=== PATIENT | female | born 1955 | race Hispanic/Latino ===

== ENCOUNTER 2017-02-11 13:28 | Outpatient (CLI) | payer OTHER ==
--- NOTE | 2017-02-11 23:13 | MRI ---
MRI OF THE RIGHT HAND WITHOUT CONTRAST 02/11/17 INDICATION: History of carpal tunnel syndrome with right hand pain since the surgery. Concern for tenosynovitis. COMPARISON: None. FINDINGS: There is some susceptibility artifact near the carpal tunnel release site consistent with the patien t's history of recent surgery. This is seen adjacent to the palmaris longus tendon. The transverse c arpal band is completely released. There is some intermediate T1 and increased T2 signal seen within the tendon sheath of the flexor tendons of the carpal tunnel with some fluid seen within the tendon sheath over the thumb, index, long, ring and small finger which may be reactive and related to the patient's recent surgery. No definite mass is evident within the carpal tunnel. The visualized aspec ts of the median nerve best seen proximally appears within normal limits. The nerve at the level of the carpal release is not well seen due to motion artifact. There is some increased T2 signal involv ing the ulnar aspect of the proximal base of the lunate. There is mild first CMC osteoarthrosis. TFC is difficult to assess due to positioning and motion artifact. There is suggestion of some ECU tend inosis at the level of the distal ulna. The other extensor tendons appear within normal limits. No d efinite drainable fluid collection is grossly evident. The visualized aspects of the extrinsic and i ntrinsic ligaments of the wrist appear within normal limits. No definite muscular atrophy is grossly evident. No abnormal T2 signal is seen involving the intrinsic hand musculature to suggest denervat ion. The ulnar neurovasculature appears within normal limits. IMPRESSION: 1. Mild tenosynovitis of the flexor tendons of the hand. May be related to the patient's posto perative state. There is postsurgical change of a carpal tunnel release with susceptibility artifact seen within the region of the transverse carpal band release site. 2. Increased T2 signal consistent with subchondral cyst-like abnormalities or edema involving t he ulnar and proximal aspect of the lunate can be seen with ulnar compartment abutment syndrome. 3. Mild first CMC osteoarthrosis. 4. Mild ECU tendinosis at the level of the distal ulna. 5. Some limitation of the exam as above. POS: [facility]
== END 2017-02-11 13:29 | disposition home or self-care (01) ==
LOC: SCSMRI 13:28
PROVIDERS: ATTEND Orthopaedic Surgery Hand Surgery
DX: M79.641 Pain in right hand (principal); M65.841 Other synovitis and tenosynovitis, right hand; M18.11 Unilateral primary osteoarthritis of first carpometacarpal joint, right hand
CPT/HCPCS: 36415; 85025; 85652

== ENCOUNTER 2017-05-12 07:46 | Outpatient (CLI) | payer OTHER ==
--- NOTE | 2017-05-12 09:35 | MRI ---
CERVICAL SPINE MRI WITHOUT CONTRAST: Date: 05-12-17 Comparison: None. History: Chronic neck pain radiating down both shoulders. Technique: Multiplanar, multisequence MR imaging of the cervical spine provided without contrast. FINDINGS: The sagittal STIR imaging demonstrates no focal area of osseous marrow edema. There is straightening of the normal cervical lordosis with no anterolisthesis or retrolisthesis seen within the cervical sp ine. No prevertebral soft tissue abnormality noted. There is mild degenerative change present at the atlantoaxial interspace. C2-3: Intervertebral disc height and signal intensity is within normal limits with no significant hermann tral canal or neural foraminal stenosis. C3-4: Intervertebral disc height and signal intensity within normal limits. No significant central ca nal or neural foraminal stenosis. C4-5: Intervertebral disc height and signal intensity is within normal limits. There is mild facet hy pertrophy on the left with mild left neural foraminal stenosis. No significant central canal or right neural foraminal stenosis. C5-6: There is disc space narrowing, disc desiccation, and anterior osteophyte formation. There is mi ld disc bulge with partial effacement of the ventral thecal sac and minimal central canal stenosis. F acet and uncal vertebral osteophyte formation noted on the left with mild left neural foraminal steno sis. No significant right neural foraminal stenosis. C6-7: There is disc space narrowing, disc desiccation and mild disc bulge with no significant central canal stenosis. Mild left facet hypertrophy with no significant neural foraminal stenosis on either side. C7-T1: Disc space narrowing and disc desiccation present. Mild bilateral facet hypertrophy. Mild unca l vertebral osteophyte formation on the right. Mild right neural foraminal stenosis. No left neural f oraminal stenosis. No focal areas of abnormal signal intensity is seen within the cervical cord. No worrisome osseous le dileep noted. IMPRESSION: 1. Relatively mild degenerative change within the cervical spine. No significant central canal or vic ral foraminal stenosis is seen. POS: [facility]
== END 2017-05-12 07:47 | disposition home or self-care (01) ==
LOC: SCSMRI 07:46
PROVIDERS: ATTEND Orthopaedic Surgery Hand Surgery
DX: M48.02 Spinal stenosis, cervical region (principal); M47.892 Other spondylosis, cervical region
CPT/HCPCS: 72141

== ENCOUNTER 2017-09-24 10:26 | Outpatient (CLI) | payer OTHER ==
--- NOTE | 2017-09-24 11:45 | RAD ---
RIGHT HAND 3 VIEWS: HISTORY: A 62-year-old female with a history of right hand pain following an injury from a fall 2 days ago wit h pain particularly in the region of the thumb. FINDINGS/IMPRESSION: Degenerative changes noted involving the thumb, hand, and wrist. No fracture or dislocation. POS: C
== END 2017-09-24 10:27 | disposition home or self-care (01) ==
LOC: SCSRAD 10:26
PROVIDERS: ATTEND Nurse Practitioner Family
DX: M79.644 Pain in right finger(s) (principal); M19.041 Primary osteoarthritis, right hand; M19.031 Primary osteoarthritis, right wrist

== ENCOUNTER 2017-10-22 09:32 | Outpatient (CLI) | payer OTHER ==
--- NOTE | 2017-10-22 13:00 | CT ---
RIGHT UPPER EXTREMITY CT WITHOUT IV CONTRAST: HISTORY: A 62-year-old female with a history of right hand and thumb pain following an injury on 09/22/2017. COMPARISON: Plain film radiograph from 09/24/2017. FINDINGS: There are degenerative and osteoarthrosis changes involving the wrist and hand. Minimal intraosseous cystic changes within the lunate bone. No evidence for acute fracture or other significant acute os seous abnormality. IMPRESSION: Degenerative and osteoarthrosis changes. No acute fracture or dislocation. POS: [facility]
== END 2017-10-22 09:33 | disposition home or self-care (01) ==
LOC: SCSCT 09:32
PROVIDERS: ATTEND Orthopaedic Surgery Hand Surgery
DX: S62.024A Nondisplaced fracture of middle third of navicular [scaphoid] bone of right wrist, initial encounter for closed fracture (principal); M19.041 Primary osteoarthritis, right hand; M19.031 Primary osteoarthritis, right wrist

== ENCOUNTER 2018-08-19 22:58 | Inpatient (IN) | payer OTHER ==
[2018-08-20] MEDS ORDERED: Acetaminophen 325 MG TAB PO PRN (00:58)
[2018-08-20] MEDS ORDERED: Ondansetron PF 4 MG/2 ML Vial IVP PRN (00:58)
[2018-08-20] MEDS ORDERED: Ondansetron ODT 4 MG TAB SL PRN (00:58)
[2018-08-20] MEDS ORDERED: PROVENTIL INHALER 6.7 G (200 INHALATIONS) INH PRN (01:03)
[2018-08-20] MEDS: Sodium Chloride 0.9% 1,000 ML IV SCH ×2 (01:20→08:39)
[2018-08-20] MEDS: Morphine 4 MG/ML VIAL SLOW IVP PRN ×3 (01:47→12:51)
[2018-08-20 02:21] VITALS: BMI 37.8
[2018-08-20] MEDS: Piperacillin/Tazobactam 4.5 GM in Sodium Chloride 0.9% 100 ML IVPB SCH ×4 (05:09→23:29)
--- NOTE | 2018-08-20 05:35 | HP ---
PRIMARY CARE PHYSICIAN: Robinson Kirby MD CODE STATUS: Full code. TIME OF EVALUATION: 12:30 a.m. CHIEF COMPLAINT: Abdominal pain. HISTORY OF PRESENT ILLNESS: This is a 63-year-old female patient. The patient came to the hospital with 2-day history of left lower quadrant pain. The patient reported that she also fell from a chair two days ago. As per co-worker, she has had some loss of consciousness. This was not reported by the patient. The patient was found to be also febrile during the whole night when she checked the temperature herself, and also tachycardic. CT abdomen was done and it showed that the patient has some diverticulitis and was started on antibiotics that we will continue for now. The symptoms were severe. No clear triggers, no alleviating factors associated with nausea. REVIEW OF SYSTEMS: CONSTITUTIONAL: The patient has subjective fever, chills and generalized weakness. RESPIRATORY: No cough, sputum production, or shortness of breath. CARDIOVASCULAR: No chest pain or palpitation. GASTROINTESTINAL: The patient has nausea, diarrhea, and abdominal pain. LATEXER: No dizziness, headache, or feeling lightheaded. GENITOURINARY: No burning on urination. EXTREMITIES: Bilateral leg swelling. All other systems were reviewed and negative except for the findings mentioned above. PAST MEDICAL HISTORY: Positive for seasonal allergies and asthma. PAST SURGICAL HISTORY: Right carpal tunnel, right hand surgery, and tubal ligation. PSYCHIATRIC HISTORY: Includes depression. FAMILY HISTORY: Reviewed and noncontributory for current presentation. SOCIAL HISTORY: No alcohol. No drug use. No smoking history. Lives at home with family. KNOWN ALLERGIES: Glutamic acid, latex, nitroglycerin, rubber, and penicillins. REPORTED MEDICATIONS: Albuterol 1 puff inhaler three times a day. PHYSICAL EXAMINATION: VITAL SIGNS: On presentation; blood pressure 107/64 with heart rate 82, respiratory rate was 16, temperature 98.5, pain was 8/10, and oxygen saturation was 95% on room air. GENERAL APPEARANCE: The patient is alert, oriented, not in acute distress. HEENT: Eyes, normal conjunctivae. Moist oral mucosa. Anicteric. No JVD. RESPIRATORY: Bilateral air entry. No rales. No wheezes. Symmetric expansion. CARDIOVASCULAR: Normal rate. Regular rhythm. No murmurs. No gallop. No edema. ABDOMEN: Soft. Normal bowel sounds. The patient has tenderness in the abdomen that is diffuse. MUSCULOSKELETAL: Baseline range of motion and strength. No tenderness. SKIN: Warm, intact. No pallor. No rash. No redness. Peripheral pulses are present. Capillary refill seems to intact. NEURO: No evidence of any new focal weakness. Baseline speech. Cranial nerves seem to be intact. PSYCH: Good mood. No anxiety. Optimal judgment. DIAGNOSTIC DATA: EKG was reviewed. The patient has sinus tachycardia at the rate of 121, SD 142, QRS 92, and QT corrected 451. CT abdomen and pelvis was done. The patient has a low grade sigmoid diverticulitis, uncomplicated. No evidence of contained perforation or abscess. The chest x-ray was reviewed. The patient has no acute intrathoracic abnormalities. LABORATORY DATA: Labs were reviewed. The patient has white count of 15.3, hemoglobin 14.2, and platelet count 293. Chemistry; sodium 136, potassium 4.3, chloride 104, carbon dioxide was 20, anion gap 16, BUN 14, creatinine 0.37, GFR 81, glucose 119, , lactic acid 1.0, calcium 9.1, and total bilirubin 0.6. LFTs were negative. Serum troponin was negative. Serum total protein was negative. Urine was negative. LP was done and fluid was negative. ASSESSMENT AND PLAN: The patient will be placed in the hospital with following medical problems: 1. Acute diverticulitis. The patient has severe pain, the patient has infection. The patient is septic due to high white count and tachycardia, fever, . The patient has been started on antibiotics and we will follow cultures, adjust as per sensitivity. 2. Sepsis. This problem was described above. 3. Hyperglycemia at 119. This is minimal, likely due to acute physical distress. No history of diabetes. We will monitor. We will treat accordingly. 4. Deep venous thrombosis prophylaxis. 5. History of asthma, reconcile home medication, this is chronic, seems to be stable. Job ID: [id number] [facility]
[2018-08-20 07:22] LABS: #Lymphocytes 1.5 thou/uL (1.20-3.40); #Monocytes 1.2 thou/uL (0.11-0.59); #Neutrophils 9.8 thou/uL (1.40-6.50); %Basophils 0.3 % (0.0-1.0); %Eosinophils 0.3 % (0.0-10.0); %Monocytes 9.6 % (0.0-10.0); %Neutrophils 77.9 % (42.0-75.0); Hemoglobin 12.7 g/dL (12.0-16.0); Mean Corpuscular HGB CONC 33.1 g/dL (32.0-36.0); Mean Corpuscular Hemoglobin 30.4 pg (27.0-31.0); Mean Corpuscular Volume 91.8 fL (78.0-98.0); Mean Platelet Volume 6.9 fL (7.4-10.4); Platelet Count 236 thou/uL (130-400); RBC Distribution Width 12.3 % (11.5-14.5); Red Blood Cell (RBC) Count 4.17 mill/uL (4.20-5.40); White Blood Cell (WBC) Count 12.6 thou/uL (4.8-10.8)
[2018-08-20 07:42] LABS: Anion Gap 11 mmol/L (10-20); BUN (Urea Nitrogen) 10 mg/dL (9.8-20.1); Calc. Creatinine Clearance 145 mL/min (70-130); Calcium 8.1 mg/dL (7.8-10.44); Carbon Dioxide 21 mmol/L (23-31); Chloride 109 mmol/L (98-107); Estimated GFR-MDRD Greater than 90; Glucose 105 mg/dL (80-115); Sodium 137 mmol/L (136-145)
[2018-08-20] MEDS: Enoxaparin Sodium 40 MG/0.4 ML SYRINGE SC SCH (08:40)
[2018-08-20] MEDS: Ondansetron PF 4 MG/2 ML Vial IVP PRN ×2 (08:47→14:44)
--- NOTE | 2018-08-20 13:35 | PDOC.PN ---
- Subjective Encounter Start Date: 08/20/18 Encounter Start Time: 13:34 Still has some abdominal pain. Complains of a LUCAS. Wants to drink. Worried because she has not drank anything in two days. - Objective Resuscitation Status - Order Detail: 08/20/18 00:56 Resuscitation Status Routine Resuscitation Status: FULL: Full Resuscitation Vital Signs & Weight: Vital Signs (12 hours) Temp Pulse Resp BP Pulse Ox 08/20/18 08:37 100.4 F H 89 20 122/76 95 08/20/18 08:00 95 08/20/18 04:17 99.2 F 89 18 147/83 H 95 Weight Weight 220 lb 0.341 oz I&O: 08/19/18 08/20/18 08/21/18 06:59 06:59 06:59 Intake Total 637 Balance 637 Result Diagrams: 08/20/18 06:58 08/20/18 06:58 Phys Exam - Physical Examination Constitutional: NAD Looks uncomfortable, but not distressed. Slightly sleepy Respiratory: no wheezing, no rales, no rhonchi, clear to auscultation bilateral Cardiovascular: RRR, no significant murmur, no rub Gastrointestinal: soft, no distention, positive bowel sounds Mild diffuse TTP. Localizes mostly in left pelvis. Musculoskeletal: no edema Dx/Plan (1) Sepsis Code(s): A41.9 - SEPSIS, UNSPECIFIED ORGANISM Status: Acute (2) Diverticulitis Code(s): K57.92 - DVTRCLI OF INTEST, PART UNSP, W/O PERF OR ABSCESS W/O BLEED Status: Acute (3) Headache Code(s): R51 - HEADACHE Status: Acute (4) Asthma Code(s): J45.909 - UNSPECIFIED ASTHMA, UNCOMPLICATED Status: Acute - Plan * Add Toradol x 1 dose for LUCAS. * Advance diet as tolerated. * Explained the pathology, treatment and prognosis to patient and family. Answered all questions. * Continue IV Abx until pain improves and she can safely treat with PO's. * No evidence of active asthma.
[2018-08-20] MEDS ORDERED: Ketorolac Tromethamine 30 MG/ML VIAL IVP SCH (13:45)
[2018-08-20] MEDS: traMADol HCl 50 MG TAB PO SCH (20:13)
[2018-08-21] MEDS: Acetaminophen 325 MG TAB PO PRN ×2 (05:41→09:14)
[2018-08-21] MEDS: Piperacillin/Tazobactam 4.5 GM in Sodium Chloride 0.9% 100 ML IVPB SCH ×3 (05:46→17:04)
[2018-08-21] MEDS: Ondansetron ODT 4 MG TAB PO PRN ×2 (05:46→14:41)
[2018-08-21] MEDS: Enoxaparin Sodium 40 MG/0.4 ML SYRINGE SC SCH (09:12)
[2018-08-21] MEDS ORDERED: Ketorolac Tromethamine 30 MG/ML VIAL IVP SCH (10:30)
[2018-08-21] MEDS: Sodium Chloride 0.9% 1,000 ML IV SCH ×2 (10:58→23:40)
--- NOTE | 2018-08-21 11:53 | PRG ---
DATE OF SERVICE: 08/21/2018 SUBJECTIVE: The patient reporting her abdomen is feeling a little bit better today. She was able to take in a little bit of p.o.'s and keep it down okay. She is reporting significant headache, which is persistent in reviewing the history with the patient's , who was in the room today along with the patient's sister and along with the patient as well, she was trying to adjust a chair and ultimately fell out of the chair onto her bottom and then down onto her left side and then backwards to hit the back of her head. According to her coworkers, she did lose consciousness briefly, although the patient did not indicate that it sounds like she may not be aware of that happening. She also reports that she feels a bit lightheaded when standing up and still has mild nausea more with sitting up. OBJECTIVE: VITAL SIGNS: Temperature is 98.6, pulse 76, respirations 20, O2 saturation 94% on room air, and blood pressure is 126/88 to 146/85. GENERAL APPEARANCE: Age-appropriate female, in no distress. Initially lying in bed, appearing somewhat uncomfortable, although once I went back into the room, the patient had gotten up and gone to the bathroom and sitting up on the side of the bed, fully awake and appears much better. HEENT: She is normocephalic and atraumatic. She has very slight tenderness to palpation on the posterior aspect of her head. No bumps, contusions, or lacerations noted. No tenderness in the neck. HEART: Regular rate and rhythm. LUNGS: Clear to auscultation bilaterally. ABDOMEN: Soft and nondistended. Positive bowel sounds, although diminished. She has still slight tender to palpation in the left lower quadrant. EXTREMITIES: No cyanosis, clubbing, or edema. NEUROLOGIC: Pupils are reactive. She has normal sensation and strength times all 4 quadrants with no focal deficits. Appeared to have no difficulty getting up in and going to the bathroom, returned to the bed. IMPRESSION AND PLAN: 1. Diverticulitis. Interestingly, the patient presented primarily after the fall, but did report some significant abdominal pain. She had elevated white count and a CT scan revealing evidence of sigmoid diverticulitis. She was febrile and tachycardic, consistent with picture of sepsis. She continues on broad-spectrum antibiotics with Zosyn. At this point, she appears to be having some improvement. White count came down to yesterday and she is able to take some p.o.'s and pain is slightly better. We will recheck a CBC in the morning. 2. Headache. The patient apparently fell out of a chair onto her buttocks, then her left arm and then hit the back of her head. She has no evidence of external injury. She does have a persistent headache and some nausea. Etiologies could include concussion or reaction to the medications or a spinal tap. The family was asking about CT in her head. I reviewed the information in the record. The patient had CT of the head in the [facility] along with a lumbar puncture. She also had a repeat CT scan here. The family said that she did not get a CT scan here in our emergency room per the patient, however, clearly she did. I printed off both reports and let them review, so that they could see that in fact that had occurred in reviewing this further with the patient. It appears that she has worse symptoms when sitting up. At this point, I believe it is more likely that the patient either has concussive symptoms or more likely spinal headache. We will reinstitute some maintenance fluids, which have and we will also give her another dose of Toradol and try to minimize the morphine and encouraged some caffeine intake. I explained that this sometimes takes a few days to fully resolve. I also going to hold the Lovenox for now and just go with sequential compression devices. I think the likelihood of any problem there is extremely low and will be an abundance of precaution. 3. Left wrist pain. The patient has modest edema in the left ulnar wrist area, which is minimally tender to palpation. She did have negative x-rays there as well. DISPOSITION: Once the patient's headache is manageable, the nausea is manageable and we can trust that she will be able to adequately tolerate p.o.'s, can likely be able to convert her over to oral regimen in complete treatment at home. Job ID: [id number] [facility]
[2018-08-21] MEDS ORDERED: cefOXitin Sodium/Dextrose,Iso 1 GM in Premix Bag 50 BAG IVPB SCH (18:30)
[2018-08-21] MEDS: traMADol HCl 50 MG TAB PO SCH (20:33)
[2018-08-21] MEDS: Hydrocortisone 1% Cream 30 GM TUBE TOP SCH (20:39)
[2018-08-21] MEDS ORDERED: Hydrocortisone 1% Cream 1.5 GM Packet TOP SCH (21:00)
[2018-08-21] MEDS: metroNIDAZOLE 500 MG in Premix Bag 1 BAG IVPB SCH (22:38)
[2018-08-21] MEDS: cefOXitin Sodium/Dextrose,Iso 1 GM in Premix Bag 50 BAG IVPB SCH (23:41)
[2018-08-22] MEDS: Acetaminophen 325 MG TAB PO PRN ×4 (02:47→17:19)
[2018-08-22 04:28] LABS: #Eosinphils 0.4 thou/uL (0.0-0.7); #Lymphocytes 2.1 thou/uL (1.20-3.40); #Monocytes 0.7 thou/uL (0.11-0.59); #Neutrophils 4.8 thou/uL (1.40-6.50); %Basophils 0.3 % (0.0-1.0); %Eosinophils 4.6 % (0.0-10.0); %Monocytes 8.3 % (0.0-10.0); %Neutrophils 59.8 % (42.0-75.0); Hemoglobin 12.4 g/dL (12.0-16.0); Mean Corpuscular Hemoglobin 30.6 pg (27.0-31.0); Mean Platelet Volume 6.9 fL (7.4-10.4); Platelet Count 247 thou/uL (130-400); RBC Distribution Width 11.8 % (11.5-14.5); Red Blood Cell (RBC) Count 4.04 mill/uL (4.20-5.40); White Blood Cell (WBC) Count 7.9 thou/uL (4.8-10.8)
[2018-08-22 04:51] LABS: ALT (SGPT) 41 U/L (8-55); AST (SGOT) 22 U/L (5-34); Albumin 3.2 g/dL (3.4-4.8); Alkaline Phosphatase 88 U/L (40-150); Anion Gap 10 mmol/L (10-20); BUN (Urea Nitrogen) 8 mg/dL (9.8-20.1); Bilirubin, Total 0.3 mg/dL (0.2-1.2); Calc. Creatinine Clearance 145 mL/min (70-130); Calcium 8.8 mg/dL (7.8-10.44); Carbon Dioxide 27 mmol/L (23-31); Chloride 107 mmol/L (98-107); Estimated GFR-MDRD Greater than 90; Globulin 3.1 g/dL (2.4-3.5); Glucose 93 mg/dL (80-115); Potassium 3.8 mmol/L (3.5-5.1); Protein, Total 6.3 g/dL (6.0-8.3); Sodium 140 mmol/L (136-145)
[2018-08-22] MEDS: cefOXitin Sodium/Dextrose,Iso 1 GM in Premix Bag 50 BAG IVPB SCH ×4 (05:22→23:32)
[2018-08-22] MEDS: metroNIDAZOLE 500 MG in Premix Bag 1 BAG IVPB SCH ×3 (05:22→21:45)
[2018-08-22] MEDS: Hydrocortisone 1% Cream 30 GM TUBE TOP SCH ×2 (08:42→20:19)
--- NOTE | 2018-08-22 11:40 | PRG ---
DATE OF SERVICE: 08/22/2018 SUBJECTIVE: The patient continues to complain of a headache today. She still has some nausea when she gets up and around, but she has had no vomiting and she has been able to take some p.o.'s. She is unable to tell me whether her headache is worse when she is supine or upright. She also indicates that her headache actually started around Thursday and she saw her primary care doctor, who thought she may have had concussive symptoms. She does believe her headache got worse following her lumbar puncture. She says when she was getting her LP when they were injecting the needles for numbing the site, she became profoundly nauseated and had vomiting. She also says that she had some abnormal sensation down her left leg at that time as well. Her abdominal pain is much better. Her face is feeling a little bit better as well. When I discussed that this actually looked more like a rosacea, she says that her environmental health safety engineer in the past diagnosed her with rosacea, but when he tried to treat her that her face became more inflamed and pruritic, so she thinks it is not rosacea, but the environmental health safety engineer felt like it was in spite of the fact that she had a reaction to the topical medication. OBJECTIVE: VITAL SIGNS: Temperature 98.2, pulse 68, respirations 18, O2 saturation 95% on room air, and blood pressure 122/82 up to 155/90. GENERAL APPEARANCE: Age-appropriate female, obese, no distress, appears uncomfortable with her headache. HEENT: Pupils reactive. No OP lesions. HEART: Regular rate and rhythm without murmurs. LUNGS: Clear bilaterally with no wheezes or rales. ABDOMEN: Soft, nontender, and nondistended. Positive bowel sounds. EXTREMITIES: No edema. LABORATORY DATA: White count 7.9, hemoglobin 12.4, and platelets 247. Sodium 140, potassium 3.8, chloride 107, BUN 8, and creatinine 0.64. LFTs normal. Albumin 3.2. IMPRESSION AND PLAN: 1. Diverticulitis. It appears to be significantly improved. Can likely go to p.o. medications at any time. Her nausea appears to be improved such that she will be able to tolerate that better. 2. Headache, unclear etiology. Certainly, it could be postconcussive syndrome, but could also be a spinal headache or most likely some combination of both. I am going to ask Neurology to see the patient today to help differentiate that. If it does appear to be more of a spinal component, may need to consider a blood patch. 3. Nausea, improves. 4. Left wrist pain, following a mechanical fall. I will ask Physical Therapy to see the patient to see if they can do some sort of soft brace, which the patient is requesting. She feels like that would help improve her pain. 5. Facial dermatitis. I suspect this is not in fact reaction to the initial antibiotics given the fact that she has had this in the past and her environmental health safety engineer thought it was rosacea as well. We will continue with low-dose, low-potency topical steroid. RT appears to be significantly better from yesterday. I counseled the patient on the need to avoid using too much for too long for bleaching or thinning the skin of the face. She says she was given that morning by her environmental health safety engineer as well. 6. History of asthma. The patient is aware that she can get inhalers or breathing treatments as needed. 7. Disposition. If the neurologist feels like the patient's headache is more postconcussive and will simply need more time, we will consider trying to change her over to p.o. medications and continue to treat as an outpatient. Job ID: [id number]
--- NOTE | 2018-08-22 12:11 | CON ---
DATE OF CONSULTATION: 08/22/2018 Registered nurse on rounds is Poncho Smith. CHIEF COMPLAINT: Headache. HISTORY OF PRESENT ILLNESS: The patient is a 63-year-old lady, who complained of headache after a fall. She apparently was at work. She had some redness in her face and she felt nauseous and fell down. She hit her bottom first and then hit her head hard. She is not sure what happened to her after the fall. There is a note in the chart that states the patient was unconscious for a brief period at the time of admission. Prior to admission, she fell at work and was noted to be unconscious by a co-worker. She was also febrile and tachycardic and she had some diverticulitis on admission and she is on IV antibiotics and she has been having some left lower quadrant pain for 2 days prior to admission on 08/19/2018. The patient reports she is now having a headache, which starts in occipital area bilaterally and then goes to the frontal area. She has no vision problems, but the day she fell, she noted some redness in her right eye. She has no vomiting, but has nausea and feels generally weak. She reports she has been pretty healthy and there was nothing wrong with her until prior to this admission. PREVIOUS MEDICAL HISTORY: Positive for seasonal allergies and asthma and remote history of depression 10 years ago when she lost a baby. PAST SURGICAL HISTORY: Carpal tunnel surgery, right finger surgery for trigger finger, and tubal ligation after tubal 25 to 26 years ago. FAMILY HISTORY: Negative for any headaches. SOCIAL HISTORY: She lives at home with her family. No alcohol. No drug use. Nonsmoker. ALLERGIES: SHE IS ALLERGIC TO GLUTAMIC ACID, LATEX, NITROGLYCERIN, RUBBER, AND PENICILLINS. MEDICATIONS: At home, albuterol inhaler three times a day. REVIEW OF SYSTEMS: PULMONARY: Negative for shortness of breath or cough. GI: Positive for left lower quadrant pain and nausea. NEUROLOGIC: Positive for headaches. ENT: Negative for any hearing problems or dizziness. OPHTHALMOLOGIC: Negative for any vision problems. DERMATOLOGIC: Negative for any skin problems. MUSCULOSKELETAL: Positive for back pain. LABORATORY WORKUP: White count 7.9, hemoglobin 12.4, hematocrit 36.4, and platelets 247. Chemistry; sodium 140, potassium 3.8, chloride 107, bicarb 27, BUN 8, and creatinine 0.64, alkaline phosphatase 88, total protein 6.3, albumin 3.2, globulin 3.1. Her spinal fluid CSF results show 1 white cells, 9 rbc's, glucose 65, and protein is 33. From April 2017, her MRI of the neck shows cervical degenerative disk disease in various areas. PHYSICAL EXAMINATION: VITAL SIGNS: Blood pressure 155/90, temperature 98.2, pulse 68, and respiratory rate 18. GENERAL APPEARANCE: Well-built, well-nourished lady, who seems to be uncomfortable. CHEST: Clear vesicular breathing. CARDIOVASCULAR: S1 and S2 heard. No murmurs. ABDOMEN: Soft. NEUROLOGIC: Higher intellectual functions, normal orientation to time, place, and person. Appropriate conversation. Cranial nerves, normal extraocular movements, but some jerkiness to the eye movements. Pupils 4 mm, briskly and reactive to light bilaterally and sensation of the face decreased on the right side compared to left. No facial asymmetry noted. Normal hearing to finger rub bilaterally. Normal elevation of palate. Tongue is midline. Motor bulk normal. Tone normal. Strength 5/5 throughout in upper and lower extremities in muscle groups tested are deltoid, biceps, triceps, wrist extension and flexion, finger extension and flexion bilaterally. Sensory examination, the patient reported diminished sensation on the right arm and light to touch. Deep tendon reflexes were 1+ throughout. Cerebellar, normal [id number] and [id number]. IMPRESSION: The patient is a 63-year-old lady, who was previously healthy except for remote history of depression and mild asthma. The patient fell down and was unconscious for brief period at work per notes, but the patient does not remember the full event. She said she fell on her bottom and then hit her head pretty hard and she is now complaining of headache starting from the occipital area and that go into the bifrontal area as well. Her examination shows tightness of her neck muscles, particularly trapezius and splenius and she is also complaining of lower back pain at the site of LP and she has numbness on exam in the face, arm, and leg distribution. Clinical history and findings are most consistent with a mild concussive syndrome with headache associated with muscle spasm as well in the neck area due to her prior degenerative neck disease. LP CSF is unremarkable at this time. However, due to presence of right face, arm, and leg numbness, we would likely need to rule out any possibility of an acute small infarct in this setting. RECOMMENDATIONS: 1. MRI of the brain. 2. Robaxin 750 mg q.8 hourly for helping the headache. Please call Neurology if you need further assistance tomorrow. Job ID: [id number]
[2018-08-22] MEDS: Sodium Chloride 0.9% 1,000 ML IV SCH (12:25)
[2018-08-22] MEDS: Methocarbamol 1 GM/10 ML VIAL SLOW IVP SCH ×2 (13:59→21:41)
[2018-08-22] MEDS: Ondansetron ODT 4 MG TAB PO PRN ×2 (17:19→22:58)
[2018-08-22] MEDS: traMADol HCl 50 MG TAB PO SCH (20:18)
[2018-08-23] MEDS: Sodium Chloride 0.9% 1,000 ML IV SCH ×3 (03:55→23:39)
[2018-08-23] MEDS: Acetaminophen 325 MG TAB PO PRN ×3 (03:57→20:16)
[2018-08-23] MEDS: cefOXitin Sodium/Dextrose,Iso 1 GM in Premix Bag 50 BAG IVPB SCH (05:23)
[2018-08-23] MEDS: metroNIDAZOLE 500 MG in Premix Bag 1 BAG IVPB SCH (05:23)
[2018-08-23] MEDS: Methocarbamol 1 GM/10 ML VIAL SLOW IVP SCH ×3 (05:23→23:29)
[2018-08-23] MEDS: Hydrocortisone 1% Cream 30 GM TUBE TOP SCH ×2 (07:45→20:17)
--- NOTE | 2018-08-23 11:18 | MRI ---
MRI BRAIN NONCONTRAST: 08/23/2018 HISTORY: A 63-year-old female with facial and lower extremity numbness after a fall. Traumatic head injury. FINDINGS: The ventricles are normal in size and configuration. There is no major intraaxial signal abnormality , restricted diffusion, midline shift or any other mass effect, recent intraaxial hemorrhage, or extr aaxial fluid collection. A tiny focus of T2 hyperintensity in the left parietal deep cerebral white matter, which is nonspecific, but probably represents a tiny focus of minimal chronic ischemic white matter change. IMPRESSION: Essentially normal. jn[] POS: [facility]
--- NOTE | 2018-08-23 12:01 | PDOC.PN ---
- Subjective Encounter Start Date: 08/23/18 Encounter Start Time: 15:00 Subjective: Patient still with LUCAS on and off. Sees gruesome images of cuts and skins -: of rabbits when closes eyes, never when open. No auditory hallucinations -: Denies depression. States she had trouble walking and needed help. - Objective Resuscitation Status - Order Detail: 08/20/18 00:56 Resuscitation Status Routine Resuscitation Status: FULL: Full Resuscitation MAR Reviewed: Yes Vital Signs & Weight: Vital Signs (12 hours) Temp Pulse Resp BP Pulse Ox 08/23/18 08:13 98.1 F 60 18 139/90 95 08/23/18 04:00 98.0 F 76 16 132/76 95 Weight Weight 220 lb 0.341 oz I&O: 08/22/18 08/23/18 08/24/18 06:59 06:59 06:59 Intake Total 1909 1175 Balance 1909 1175 Result Diagrams: 08/22/18 04:12 08/22/18 04:12 Phys Exam - Physical Examination Constitutional: NAD HEENT: moist MMs Respiratory: no wheezing, no rales, no rhonchi Cardiovascular: RRR Gastrointestinal: soft, positive bowel sounds Neurological: non-focal, moves all 4 limbs Psychiatric: A&O x 3 Deviation from normal: a bit depressed affect Dx/Plan (1) Diverticulitis Code(s): K57.92 - DVTRCLI OF INTEST, PART UNSP, W/O PERF OR ABSCESS W/O BLEED Status: Acute (2) Post concussive syndrome Code(s): F07.81 - POSTCONCUSSIONAL SYNDROME Status: Acute Comment: MRI neg, will have f/u with neurology outpatient (3) Strain of left wrist Code(s): S66.912A - STRAIN OF UNSP MUSC/FASC/TEND AT WRS/HND LV, LEFT HAND, INIT Status: Acute Comment: wrist brace, f/u x-ray if not better in one week (4) Rosacea Code(s): L71.9 - ROSACEA, UNSPECIFIED Status: Chronic - Plan cont current plan of care, continue antibiotics, PT/OT Change to oral abx today, patient not certain about going home due to -: unsteadiness, will be gone to work during the days. Will have -: rehab eval. * . - Discharge Day Encounter end time: 15:20
[2018-08-23] MEDS: metroNIDAZOLE 500 MG TAB PO SCH ×2 (14:57→20:16)
[2018-08-23] MEDS: Ondansetron ODT 4 MG TAB PO PRN ×2 (17:56→23:37)
[2018-08-23] MEDS: Ciprofloxacin 500 MG TAB PO SCH (20:16)
[2018-08-23] MEDS: traMADol HCl 50 MG TAB PO SCH (20:16)
[2018-08-24] MEDS: Acetaminophen 325 MG TAB PO PRN ×3 (06:16→17:45)
[2018-08-24] MEDS: Ciprofloxacin 500 MG TAB PO SCH ×2 (06:16→20:49)
[2018-08-24] MEDS: Methocarbamol 1 GM/10 ML VIAL SLOW IVP SCH ×3 (06:17→20:52)
[2018-08-24] MEDS: metroNIDAZOLE 500 MG TAB PO SCH ×3 (07:50→20:49)
[2018-08-24] MEDS: Hydrocortisone 1% Cream 30 GM TUBE TOP SCH ×2 (07:53→20:51)
--- NOTE | 2018-08-24 09:46 | PDOC.PN ---
- Subjective Encounter Start Date: 08/24/18 Encounter Start Time: 12:00 Subjective: Patient with improvement in LUCAS. Returns with any ambulation. Nausea -: if eats very much or ambulation. Gruesome visions of blood and cuts when -: lays down and closes eyes to sleep, but less severe. Mild depression. No SI - Objective Resuscitation Status - Order Detail: 08/20/18 00:56 Resuscitation Status Routine Resuscitation Status: FULL: Full Resuscitation MAR Reviewed: Yes Vital Signs & Weight: Vital Signs (12 hours) Temp Pulse Resp BP Pulse Ox 08/24/18 07:38 98.6 F 69 18 138/85 97 Weight Weight 220 lb 0.341 oz I&O: 08/23/18 08/24/18 08/25/18 06:59 06:59 06:59 Intake Total 1175 Balance 1175 Result Diagrams: 08/22/18 04:12 08/22/18 04:12 Phys Exam - Physical Examination Constitutional: NAD HEENT: moist MMs Respiratory: no wheezing, no rales, no rhonchi, clear to auscultation bilateral Cardiovascular: RRR, no significant murmur Gastrointestinal: soft, non-tender, positive bowel sounds Neurological: non-focal, moves all 4 limbs Psychiatric: A&O x 3 Deviation from normal: mildly depressed affect Dx/Plan (1) Diverticulitis Code(s): K57.92 - DVTRCLI OF INTEST, PART UNSP, W/O PERF OR ABSCESS W/O BLEED Status: Acute (2) Post concussive syndrome Code(s): F07.81 - POSTCONCUSSIONAL SYNDROME Status: Acute Comment: MRI neg, will have f/u with neurology outpatient (3) Strain of left wrist Code(s): S66.912A - STRAIN OF UNSP MUSC/FASC/TEND AT WRS/HND LV, LEFT HAND, INIT Status: Acute Comment: wrist brace, f/u x-ray if not better in one week (4) Rosacea Code(s): L71.9 - ROSACEA, UNSPECIFIED Status: Chronic - Plan cont current plan of care, PT/OT awaiting insurance authorization for rehab, if continues to improve -: may be able to go home with home health eventually * . - Discharge Day Encounter end time: 12:10
[2018-08-24] MEDS: Sodium Chloride 0.9% 1,000 ML IV SCH (17:44)
[2018-08-24] MEDS: traMADol HCl 50 MG TAB PO SCH (20:49)
[2018-08-25] MEDS: Sodium Chloride 0.9% 1,000 ML IV SCH (03:42)
[2018-08-25] MEDS: Ciprofloxacin 500 MG TAB PO SCH (06:03)
[2018-08-25] MEDS: Methocarbamol 1 GM/10 ML VIAL SLOW IVP SCH (06:03)
[2018-08-25] MEDS: Hydrocortisone 1% Cream 30 GM TUBE TOP SCH (07:50)
[2018-08-25] MEDS: metroNIDAZOLE 500 MG TAB PO SCH (07:50)
[2018-08-25] MEDS: Acetaminophen 325 MG TAB PO PRN (07:54)
--- NOTE | 2018-08-25 09:17 | PDOC.PN ---
- Subjective Encounter Start Date: 08/25/18 Encounter Start Time: 10:25 Subjective: Patient with improvement in dizziness, LUCAS, nausea. Just comes occ -: now. Ambulated well with PT. Not bothered as much by seeing things when -: she closes her eyes to go to sleep. Feels ready to go home. - Objective Resuscitation Status - Order Detail: 08/20/18 00:56 Resuscitation Status Routine Resuscitation Status: FULL: Full Resuscitation MAR Reviewed: Yes Vital Signs & Weight: Vital Signs (12 hours) Temp Pulse Resp BP Pulse Ox 08/25/18 08:20 98.2 F 64 18 150/77 H 96 Weight Weight 220 lb 0.341 oz Result Diagrams: 08/22/18 04:12 08/22/18 04:12 Phys Exam - Physical Examination Constitutional: NAD HEENT: moist MMs Respiratory: no wheezing, no rales, no rhonchi, clear to auscultation bilateral Cardiovascular: RRR, no significant murmur Gastrointestinal: soft, positive bowel sounds Neurological: non-focal, moves all 4 limbs Psychiatric: normal affect, A&O x 3 Deviation from normal: appears upbeat today Dx/Plan (1) Diverticulitis Code(s): K57.92 - DVTRCLI OF INTEST, PART UNSP, W/O PERF OR ABSCESS W/O BLEED Status: Acute Comment: one more day of abx for full 7 days (2) Post concussive syndrome Code(s): F07.81 - POSTCONCUSSIONAL SYNDROME Status: Acute Comment: MRI neg, will have f/u with neurology outpatient, no return to work until cleared by her worker's comp doctor. (3) Strain of left wrist Code(s): S66.912A - STRAIN OF UNSP MUSC/FASC/TEND AT WRS/HND LV, LEFT HAND, INIT Status: Acute Comment: wrist brace, f/u x-ray if not better in one week (4) Rosacea Code(s): L71.9 - ROSACEA, UNSPECIFIED Status: Chronic - Plan cont current plan of care, PT/OT patient ambulating much better with PT, will d/c with O/P PT at -: [place], f/u with worker's comp doctor next week. * . - Discharge Day Encounter end time: 10:55
[2018-08-25 12:42] VITALS: BP 153/100; TEMP 98.1
--- NOTE | 2018-08-26 06:50 | DIS ---
DATE OF ADMISSION: 08/19/2018 DATE OF DISCHARGE: 08/25/2018 PRIMARY CARE PHYSICIAN: Dr. Kirby. REASON FOR ADMISSION: Acute diverticulitis. DIAGNOSES AT DISCHARGE: 1. Acute diverticulitis, resolved. 2. Post concussive syndrome. 3. Strain of left wrist. 4. Rosacea. PROCEDURES: 1. CT of the brain without contrast showing no acute intracranial abnormality. 2. MRI of the brain showing no acute abnormality. 3. CT of the abdomen and pelvis with contrast showing low-grade sigmoid diverticulitis which is uncomplicated. CONSULTATION: Neurology, Dr. Flores. SUMMARY OF HOSPITAL COURSE: This is a 63-year-old female, who had had a fall from her chair at work two days previously with some loss of consciousness and suffered a concussion related consequences of that with dizziness, persistent headaches, then she started also having fever and abdominal pain and tachycardia. She went to the emergency room in [place] and was found to have diverticulitis on her CT scan. She was started on antibiotics. She also had a lumbar puncture done which showed no evidence of intracranial hemorrhage or infection. Urine, blood culture, and CSF cultures were all negative, and her flu test was negative. She was transferred, admitted to the hospital in the hospital. She had improvement in her abdominal pain and fever with antibiotics and eventually transitioned over to oral antibiotics; however, she was having significant nausea and dizziness and severe headaches, especially when she had tried to get up and walk around. Neurology was consulted. MRI done, it was negative. She was diagnosed with a postconcussive syndrome. She was able to make some improvements over the course of her hospitalization and initially it was thought that she would have to go to rehab and started on that process. However, she improved over the next couple of days and now is ambulating well with physical therapy in the hallway with minimal dizziness and nausea and she is appropriate to go home with outpatient physical therapy. DISCHARGE MANAGEMENT: Discharge home. ACTIVITY: As tolerated. She is to do daily ambulation and movement, however, nothing that is straining and to back off if any movement if she has worsening of headache or nausea. DIET: Regular diet. THERAPY: Outpatient physical therapy. FOLLOWUP: Follow up with Dr. Kirby or likely will need to see the workers workman comp doctor since this was an injury at work. She needs to follow up in next week. She is not to return to work until she is cleared by them and if she has persistent symptoms she may need outpatient neurology followup as well. MEDICATIONS: 1. Ciprofloxacin 500 mg twice a day, two more tablets for a full seven-day course of antibiotics. 2. Metronidazole 500 mg 3 tabs a day, 3 more tablets for full seven days of antibiotics. 3. Ibuprofen 400 mg 1 to 2 tablets every 6 hours as needed for pain, 20 tablets dispensed. 4. Omeprazole 40 mg daily 14 caps dispensed. 5. Zofran ODT 4 mg q.6 hours as needed for nausea and vomiting, 15 tabs dispensed. 6. Continue albuterol sulfate inhaler. 7. Continue tramadol at home. 8. Continue Flonase allergy spray. TIME SPENT: Arranging the details of this discharge took 35 minutes. Job ID: [id number]
== END 2018-08-25 14:10 | disposition home or self-care (01) | DRG 872 ==
LOC: ERS 22:58 → T4-A 23:25
PROVIDERS: ADMIT Hospitalist; ATTEND Hospitalist
PROC: 009U3ZX Drainage of Spinal Canal, Percutaneous Approach, Diagnostic (ICD-10-PCS; principal; 2018-08-19)
DX: A41.9 Sepsis, unspecified organism (principal); K57.92 Diverticulitis of intestine, part unspecified, without perforation or abscess without bleeding; J45.909 Unspecified asthma, uncomplicated; F07.81 Postconcussional syndrome; L71.9 Rosacea, unspecified; R73.9 Hyperglycemia, unspecified; M25.532 Pain in left wrist; L30.9 Dermatitis, unspecified; F32.9 Major depressive disorder, single episode, unspecified; Z88.0 Allergy status to penicillin; Z88.8 Allergy status to other drugs, medicaments and biological substances; Z91.040 Latex allergy status; Z98.51 Tubal ligation status; Z79.51 Long term (current) use of inhaled steroids; Z79.899 Other long term (current) drug therapy
CPT/HCPCS: 36415; 70551; 80048; 80053; 85025; 99285; J0694; J1650; J1885; J2270; J2405; J2543; J2800; J3490; Q0162

== ENCOUNTER 2023-03-12 12:18 | Outpatient (CLI) | payer BC ==
[2023-03-12 13:32] LABS: #Basophils 0.1 10x3/uL (0.0-0.2); #Eosinphils 0.3 10x3/uL (0.0-0.5); #Monocytes 0.6 10x3/uL (0.0-1.1); #Neutrophils 3.5 10x3/uL (1.5-8.4); %Basophils 0.7 % (0.0-2.0); %Eosinophils 3.6 % (0.0-6.0); %Monocytes 7.6 % (0.0-10.0); %Neutrophils 48.8 % (40.0-75.0); Hematocrit 37.6 % (34.9-44.5); Hemoglobin 12.9 g/dL (12.0-15.5); Mean Corpuscular HGB CONC 34.3 g/dL (32.0-36.0); Mean Corpuscular Hemoglobin 30.4 pg (27.0-33.0); Mean Corpuscular Volume 88.5 fl (81.6-98.3); Platelet Count 277 10x3/uL (150-450); RBC Distribution Width 12.5 % (11.5-14.5); Red Blood Cell (RBC) Count 4.25 10x6/uL (3.90-5.03); White Blood Cell (WBC) Count 7.2 10x3/uL (3.5-10.5)
[2023-03-12 14:09] LABS: ALT (SGPT) 24 U/L (8-55); AST (SGOT) 17 U/L (5-34); Albumin 4.2 g/dL (3.4-4.8); Alkaline Phosphatase 89 U/L (40-110); Anion Gap 13 mmol/L (10-20); BUN (Urea Nitrogen) 16 mg/dL (9.8-20.1); Bilirubin, Total 0.3 mg/dL (0.2-1.2); Calc. Creatinine Clearance 0 mL/min (70-130); Calcium 9.1 mg/dL (7.8-10.44); Carbon Dioxide 24 mmol/L (23-31); Chloride 106 mmol/L (98-107); Estimated GFR 97; Globulin 2.8 g/dL (2.4-3.5); Glucose 92 mg/dL (80-115); Potassium 4.2 mmol/L (3.5-5.1); Sodium 139 mmol/L (136-145)
== END 2023-03-12 12:19 | disposition home or self-care (01) ==
LOC: LABBT 12:18
PROVIDERS: ATTEND Surgery
DX: Z01.818 Encounter for other preprocedural examination (principal); K43.9 Ventral hernia without obstruction or gangrene; K42.9 Umbilical hernia without obstruction or gangrene
CPT/HCPCS: 80053; 85025; 93005; 93010

== ENCOUNTER 2023-03-20 05:51 | Day surgery (SDC) | payer BC, MEDICARE ==
[2023-03-12 13:01] VITALS: BMI 35.5
[2023-03-20] MEDS ORDERED: Dexamethasone 4 mg/ml Vial ONE (06:47)
[2023-03-20] MEDS ORDERED: Rocuronium Bromide 10 MG/ML (10ML VIAL) ONE ×2 (06:47→07:59)
[2023-03-20] MEDS ORDERED: Ondansetron PF 4 MG/2 ML Vial ONE ×3 (06:47→12:07)
[2023-03-20] MEDS ORDERED: Lidocaine 1% PF 5 ML VIAL ONE (06:47)
[2023-03-20] MEDS ORDERED: PROPOFOL 40 ML ONE (06:48)
[2023-03-20] MEDS ORDERED: SUGAMMADEX SODIUM 200 MG/2 ML VIAL ONE (06:48)
[2023-03-20] MEDS ORDERED: fentaNYL PF 100 MCG/2 ML SYRINGE ONE ×2 (06:48→10:14)
[2023-03-20] MEDS ORDERED: Lidocaine 2% PF 5 ML VIAL ONE (06:49)
[2023-03-20] MEDS ORDERED: Dexmedetomidine 200 MCG/2 ML VIAL ONE (06:50)
[2023-03-20] MEDS ORDERED: LevoFLOXacin 500 mg/D5W 100 ML BAG ONE (07:20)
[2023-03-20] MEDS ORDERED: EPINEPHrine 1 MG/ML VIAL ONE (07:36)
[2023-03-20] MEDS ORDERED: Bupivacaine 0.25% HCL 30 ML VIAL ONE (07:37)
[2023-03-20] MEDS ORDERED: Midazolam HCl 2 mg/2 ml Vial ONE (07:53)
[2023-03-20] MEDS ORDERED: PROPOFOL 200 MG/20 ML VIAL ONE (07:59)
[2023-03-20] MEDS ORDERED: Dexamethasone 20 MG/5 ML VIAL ONE (07:59)
[2023-03-20] MEDS ORDERED: fentaNYL 50 mcg/mL 1 mL Vial ONE ×2 (11:17→12:07)
[2023-03-20] MEDS ORDERED: HYDROcodone/Acetaminophen 5/325 mg Tablet ONE (13:33)
[2023-03-20] MEDS ORDERED: Morphine 2 MG/ML VIAL ONE (13:34)
== END 2023-03-20 16:51 | disposition home or self-care (01) ==
LOC: SDC 05:51
PROVIDERS: ATTEND Surgery
PROC: 0WUF47Z Supplement Abdominal Wall with Autologous Tissue Substitute, Percutaneous Endoscopic Approach (ICD-10-PCS; principal; 2023-03-20)
DX: K43.9 Ventral hernia without obstruction or gangrene (principal); K42.9 Umbilical hernia without obstruction or gangrene; K66.0 Peritoneal adhesions (postprocedural) (postinfection); F32.A Depression, unspecified; J45.909 Unspecified asthma, uncomplicated; J30.2 Other seasonal allergic rhinitis; Z87.19 Personal history of other diseases of the digestive system; R73.03 Prediabetes; E55.9 Vitamin D deficiency, unspecified; Z86.010 Personal history of colon polyps; Z98.51 Tubal ligation status; Z91.040 Latex allergy status; Z88.0 Allergy status to penicillin; Z79.899 Other long term (current) drug therapy
CPT/HCPCS: A4314; C1781; J0171; J1100; J1956; J2001; J2250; J2272; J2405; J2704; J3010; S0020